=== PATIENT | female | born 1945 | race Caucasian/White ===

== ENCOUNTER 2017-10-25 17:38 | Inpatient (IN) | payer MEDICARE, OTHER ==
[~2017-10-25] VITALS: Ht 167.6 cm; Wt 79.6 kg
[~2017-10-25 17:38] MED LIST: ANAS1TAB10 PO; CYCL-394 PO; EPIN0.3A3 IM; LEVO112T39 PO; LISI-222 PO; PRAM0.253 PO; VERA240T PO; albuterol inhaler
[2017-10-25 18:15] LABS: BASOPHILS % (AUTO) 0.2 % (0-1); EOSINOPHILS # (AUTO) 0.1 X10'3 (0-0.9); EOSINOPHILS % (AUTO) 1.2 % (0-6); HEMATOCRIT 34.9 % (35.0-45.0); HEMOGLOBIN 12.3 g/dl (12.0-16.0); LYMPHOCYTES # (AUTO) 1.2 X10'3 (1.1-4.8); LYMPHOCYTES % (AUTO) 16.3 % (21-51); MEAN CORPUSCULAR HEMOGLOBIN 30.9 PG (27.0-31.0); MEAN CORPUSCULAR HGB CONC 35.4 % (33.0-36.5); MEAN CORPUSCULAR VOLUME 87.2 FL (78-98); MEAN PLATELET VOLUME 8.5 FL (7.4-10.4); MONOCYTES # (AUTO) 0.5 X10'3 (0-0.9); MONOCYTES % (AUTO) 6.3 % (2-12); NEUTROPHILS # (AUTO) 5.6 X10'3 (1.8-7.7); WHITE BLOOD COUNT 7.4 X10'3 (4.5-11.0)
[2017-10-25 18:25] LABS: INR 1.2 INR; PARTIAL THROMBOPLASTIN TIME 30 SECONDS (22-32)
[2017-10-25 18:27] LABS: PLATELET COUNT 97 X10'3 (140-440)
[2017-10-25 18:30] LABS: ALANINE AMINOTRANSFERASE 23 U/L (12-78); ALBUMIN 3.5 G/DL (3.4-5.0); ALBUMIN/GLOBULIN RATIO 0.8 (1.1-1.5); ALKALINE PHOSPHATASE 47 IU/L (46-116); ANION GAP 11 (8-16); ASPARTATE AMINO TRANSFERASE 22 U/L (10-37); BLOOD UREA NITROGEN 13 MG/DL (7-18); BUN/CREATININE RATIO 14.4 (6.6-38.0); CALCIUM 8.7 MG/DL (8.5-10.1); CHLORIDE 103 MMOL/L (99-107); GLUCOSE 138 MG/DL (70-104); POTASSIUM 3.8 MMOL/L (3.5-5.1); SODIUM 137 MMOL/L (135-145); TOTAL CARBON DIOXIDE 23.3 MMOL/L (24-32); TOTAL PROTEIN 7.9 G/DL (6.4-8.2); eGFR 62 ML/MIN
[2017-10-25] MEDS ORDERED: aspirin 325mg tablet PO ONE (20:00)
[2017-10-25 20:04] LABS: CLARITY,URINE Clear (Clear); COLOR,URINE Dark Yellow (Yellow); GLUCOSE, URINE Negative (Neg); KETONES,URINE Trace mg/dl (Neg); LEUKOCYTE ESTERASE ,URINE Trace (Neg); NITRITES, URINE Negative (Neg); OCCULT BLOOD,URINE Trace-Intact (Neg); PH,URINE 6.5 (4.8-8.0); PROTEIN,URINE Negative (Neg)
[2017-10-25 20:06] LABS: UA COLLECTION TYPE STRAIGHT CATH
[2017-10-25 20:15] LABS: BACTERIA,URINE FEW /HPF (Neg); RBC,URINE 0-2 /HPF (0-2); SQUAMOUS EPITHELIAL CELL,UR NONE SEEN /LPF (FEW); URINE AMPHETAMINE SCREEN NEGATIVE (Neg); URINE BARBITUATE SCREEN NEGATIVE (Neg); URINE BENZODIAZEPINES SCREEN NEGATIVE (Neg); URINE CANNABINOID SCREEN POSITIVE (Neg); URINE COCAINE SCREEN NEGATIVE (Neg); URINE METHADONE SCREEN NEGATIVE (Neg); URINE OPIATE SCREEN NEGATIVE (Neg); URINE PHENCYCLIDINE SCREEN NEGATIVE (Neg); WBC,URINE 0-4 /HPF (0-4); YEAST FEW /HPF (NEGATIVE)
[2017-10-25] MEDS ORDERED: temazepam 15mg capsule PO PRN (21:00)
[2017-10-25] MEDS ORDERED: lactulose 20gm/30ml cup PO ONE (21:30)
[2017-10-25] MEDS ORDERED: normal saline 1000ml 1,000 ML IV SCH (22:55)
[2017-10-25] MEDS ORDERED: magnesium Cl slow-release 64mg tablet PO PRN (22:55)
[2017-10-25] MEDS ORDERED: potassium Cl 40MEQ/NS 500ml 500 ML IV PRN ×2 (22:55)
[2017-10-25] MEDS ORDERED: HYDROcodone/acetaminophen 5mg/325mg tablet PO PRN (22:55)
[2017-10-25] MEDS ORDERED: potassium Cl 20 mEq SR tablet PO PRN ×2 (22:55)
[2017-10-25] MEDS ORDERED: magnesium 4gm in 100ml NS 100 ML IV PRN (22:55)
[2017-10-25] MEDS ORDERED: HYDROcodone/acetaminophen 10/325mg tab PO PRN (22:55)
[2017-10-25] MEDS ORDERED: mag hydrox/Alum hydrox/simeth 30ml oral suspension PO PRN (22:55)
[2017-10-25] MEDS ORDERED: magnesium 2GM in 50ml NS 50 ML IV PRN (22:55)
[2017-10-25] MEDS ORDERED: ondansetron/PF 4mg/2ml inj IV PRN (22:55)
[2017-10-25] MEDS ORDERED: magnesium hydroxide 30ml (MOM) UD suspension PO PRN (22:55)
[2017-10-25 23:24] LABS: CHOL/HDL RATIO 2.4 (0.00-4.99); CHOLESTEROL 158 MG/DL (0-200); HDL CHOLESTEROL 67 MG/DL (35-60); LDL CHOLESTEROL 84 MG/DL (50-100); TRIGLYCERIDES 66 MG/DL (20-135)
[2017-10-25 23:28] LABS: HEMOGLOBIN A1C 6.7 % (4.5-6.2)
[2017-10-26] MEDS ORDERED: METF500T PO (01:05)
[2017-10-26 01:45] VITALS: BP 121/57
[2017-10-26 05:00] VITALS: BP 138/75
[2017-10-26 05:48] LABS: BASOPHILS % (AUTO) 0.3 % (0-1); EOSINOPHILS # (AUTO) 0.1 X10'3 (0-0.9); HEMOGLOBIN 11.7 g/dl (12.0-16.0); LYMPHOCYTES % (AUTO) 18.7 % (21-51); MEAN CORPUSCULAR HEMOGLOBIN 30.9 PG (27.0-31.0); MEAN CORPUSCULAR HGB CONC 35.4 % (33.0-36.5); MEAN CORPUSCULAR VOLUME 87.2 FL (78-98); MEAN PLATELET VOLUME 8.6 FL (7.4-10.4); MONOCYTES # (AUTO) 0.4 X10'3 (0-0.9); MONOCYTES % (AUTO) 8.2 % (2-12); NEUTROPHILS # (AUTO) 3.8 X10'3 (1.8-7.7); NEUTROPHILS % (AUTO) 71.8 % (42-75); PLATELET COUNT 76 X10'3 (140-440); RED BLOOD COUNT 3.78 X10'6 (4.20-5.60); RED CELL DISTRIBUTION WIDTH 14.3 % (11.5-14.5); WHITE BLOOD COUNT 5.3 X10'3 (4.5-11.0)
[2017-10-26] MEDS ORDERED: OXYB5TAB11 (06:40)
[2017-10-26 07:28] LABS: ALANINE AMINOTRANSFERASE 23 U/L (12-78); ALBUMIN 3.2 G/DL (3.4-5.0); ALBUMIN/GLOBULIN RATIO 0.7 (1.1-1.5); ALKALINE PHOSPHATASE 38 IU/L (46-116); ANION GAP 12 (8-16); ASPARTATE AMINO TRANSFERASE 20 U/L (10-37); BILIRUBIN,TOTAL 1.3 MG/DL (0.1-1.0); BLOOD UREA NITROGEN 12 MG/DL (7-18); CALCIUM 8.2 MG/DL (8.5-10.1); CHLORIDE 104 MMOL/L (99-107); GLUCOSE 152 MG/DL (70-104); MAGNESIUM 1.5 MG/DL (1.5-2.4); POTASSIUM 3.6 MMOL/L (3.5-5.1); SODIUM 137 MMOL/L (135-145); TOTAL CARBON DIOXIDE 21.1 MMOL/L (24-32); TOTAL PROTEIN 7.5 G/DL (6.4-8.2); eGFR 71 ML/MIN
[2017-10-26] MEDS ORDERED: lisinopril 5mg tablet PO SCH (08:00)
[2017-10-26] MEDS: K and/or MAG REPLACEMENT MC SCH (08:00)
[2017-10-26] MEDS ORDERED: oseltamivir phos 75mg capsule PO SCH (08:00)
[2017-10-26] MEDS: levoTHYROXINE 112mcg tablet PO SCH (08:29)
[2017-10-26] MEDS: metFORMIN 500mg tablet PO SCH ×2 (08:29→17:52)
[2017-10-26] MEDS: oxybutynin 5mg tablet PO SCH ×2 (08:31→20:20)
[2017-10-26] MEDS: lactulose 20gm/30ml cup PO SCH ×3 (08:31→20:20)
[2017-10-26] MEDS: verapamil SR 120mg (sust. release) tab PO SCH (09:50)
[2017-10-26 10:00] VITALS: BP 135/75
[2017-10-26] MEDS: aspirin 81mg tablet.DR PO SCH (10:55)
[2017-10-26] MEDS: CefTRIAXone 2gm/NS 100ml IVPB 50 ML IV SCH (13:27)
[2017-10-26 14:00] VITALS: BP 147/69
[2017-10-26] MEDS ORDERED: acyclovir 1 GM inj IV SCH (16:00)
[2017-10-26] MEDS ORDERED: LIDOcaine 1% 30ml vial SQ STA (17:14)
[2017-10-26] MEDS: ACYCLOVIR IV SCH (17:51)
[2017-10-26] MEDS: NORMAL SALINE IV SCH (17:51)
[2017-10-26] MEDS: acetaminophen 325mg tablet PO PRN (17:52)
[2017-10-26 18:00] VITALS: BP 142/70
[2017-10-26 19:25] LABS: GLUCOSE,CSF 86 MG/DL (40-75); TOTAL PROTEIN,CSF 39 MG/DL (30-60)
[2017-10-26 19:28] LABS: APPEARANCE,CSF CLEAR; CSF SUPERNATANT COLOR COLORLESS; CSF VOLUME 15 ML
[2017-10-26 19:29] LABS: CSF RBC 0 /CU MM (0); CSF WBC CT 0 /CU MM (0-5); TUBE# COUNTED 4
[2017-10-26] MEDS: cyclobenzaprine 10mg tablet PO SCH (20:20)
[2017-10-26] MEDS: pramipexole 0.25mg tablet PO SCH (20:20)
[2017-10-26] MEDS: anastrozole 1 MG tablet PO SCH (20:21)
[2017-10-26 22:00] VITALS: BP 132/64
[2017-10-27] MEDS: ACYCLOVIR IV SCH ×2 (00:03→08:48)
[2017-10-27] MEDS: NORMAL SALINE IV SCH ×2 (00:03→08:48)
[2017-10-27] MEDS: vancomycin/NS 1 GM ADD-VANTAGE 250 ML IV SCH ×2 (01:25→12:51)
[2017-10-27 02:00] VITALS: BP 131/64
[2017-10-27 05:00] VITALS: BP 132/62
[2017-10-27 06:33] LABS: BASOPHILS % (AUTO) 0.3 % (0-1); EOSINOPHILS % (AUTO) 0.4 % (0-6); HEMATOCRIT 30.1 % (35.0-45.0); HEMOGLOBIN 10.6 g/dl (12.0-16.0); LYMPHOCYTES # (AUTO) 0.7 X10'3 (1.1-4.8); LYMPHOCYTES % (AUTO) 20.2 % (21-51); MEAN CORPUSCULAR HEMOGLOBIN 30.7 PG (27.0-31.0); MEAN CORPUSCULAR HGB CONC 35.1 % (33.0-36.5); MEAN CORPUSCULAR VOLUME 87.5 FL (78-98); MEAN PLATELET VOLUME 8.7 FL (7.4-10.4); MONOCYTES # (AUTO) 0.5 X10'3 (0-0.9); NEUTROPHILS # (AUTO) 2.1 X10'3 (1.8-7.7); NEUTROPHILS % (AUTO) 65.1 % (42-75); PLATELET COUNT 69 X10'3 (140-440); RED BLOOD COUNT 3.44 X10'6 (4.20-5.60); RED CELL DISTRIBUTION WIDTH 14.1 % (11.5-14.5); WHITE BLOOD COUNT 3.3 X10'3 (4.5-11.0)
[2017-10-27 06:51] LABS: PLATELET ESTIMATE DECREASED; POLYCHROMASIA FEW
[2017-10-27 06:52] LABS: ELLIPTOCYTES 1+
[2017-10-27 07:12] LABS: ALANINE AMINOTRANSFERASE 35 U/L (12-78); ALBUMIN 2.9 G/DL (3.4-5.0); ALBUMIN/GLOBULIN RATIO 0.7 (1.1-1.5); ALKALINE PHOSPHATASE 31 IU/L (46-116); ANION GAP 11 (8-16); ASPARTATE AMINO TRANSFERASE 33 U/L (10-37); BLOOD UREA NITROGEN 10 MG/DL (7-18); BUN/CREATININE RATIO 12.5 (6.6-38.0); CALCIUM 7.8 MG/DL (8.5-10.1); CHLORIDE 104 MMOL/L (99-107); GLUCOSE 124 MG/DL (70-104); MAGNESIUM 1.6 MG/DL (1.5-2.4); POTASSIUM 3.5 MMOL/L (3.5-5.1); SODIUM 136 MMOL/L (135-145); TOTAL CARBON DIOXIDE 21.3 MMOL/L (24-32); TOTAL PROTEIN 6.9 G/DL (6.4-8.2); eGFR 71 ML/MIN
[2017-10-27] MEDS: metFORMIN 500mg tablet PO SCH ×2 (07:32→17:11)
[2017-10-27] MEDS: lactulose 20gm/30ml cup PO SCH ×3 (07:32→20:37)
[2017-10-27] MEDS: verapamil SR 120mg (sust. release) tab PO SCH (07:32)
[2017-10-27] MEDS: levoTHYROXINE 112mcg tablet PO SCH (07:32)
[2017-10-27] MEDS: oxybutynin 5mg tablet PO SCH ×2 (07:33→20:37)
[2017-10-27] MEDS: aspirin 81mg tablet.DR PO SCH (07:33)
[2017-10-27] MEDS: CefTRIAXone 2gm/NS 100ml IVPB 50 ML IV SCH (07:35)
[2017-10-27] MEDS: K and/or MAG REPLACEMENT MC SCH (08:00)
[2017-10-27 10:00] VITALS: BP 114/58
[2017-10-27] MEDS: lactobacillus rhamnosus 10,000 MMU CELLS/CAPSULE PO SCH (17:11)
[2017-10-27 18:00] VITALS: BP 108/57
[2017-10-27] MEDS: pramipexole 0.25mg tablet PO SCH (20:37)
[2017-10-27] MEDS: cyclobenzaprine 10mg tablet PO SCH (20:37)
[2017-10-27] MEDS: anastrozole 1 MG tablet PO SCH (20:38)
[2017-10-27 22:00] VITALS: BP 117/62
[2017-10-28] MEDS: vancomycin/NS 1 GM ADD-VANTAGE 250 ML IV SCH (01:12)
[2017-10-28 06:00] VITALS: BP 127/65
[2017-10-28 06:21] LABS: HEMATOCRIT 30.2 % (35.0-45.0); HEMOGLOBIN 10.8 g/dl (12.0-16.0); MEAN CORPUSCULAR HEMOGLOBIN 30.6 PG (27.0-31.0); MEAN CORPUSCULAR HGB CONC 35.6 % (33.0-36.5); MEAN CORPUSCULAR VOLUME 85.9 FL (78-98); MEAN PLATELET VOLUME 9.3 FL (7.4-10.4); PLATELET COUNT 73 X10'3 (140-440); RED BLOOD COUNT 3.51 X10'6 (4.20-5.60); WHITE BLOOD COUNT 2.8 X10'3 (4.5-11.0)
[2017-10-28 07:05] LABS: ALANINE AMINOTRANSFERASE 35 U/L (12-78); ALBUMIN 2.7 G/DL (3.4-5.0); ALBUMIN/GLOBULIN RATIO 0.6 (1.1-1.5); ALKALINE PHOSPHATASE 31 IU/L (46-116); ANION GAP 12 (8-16); ASPARTATE AMINO TRANSFERASE 38 U/L (10-37); BILIRUBIN,TOTAL 0.8 MG/DL (0.1-1.0); BLOOD UREA NITROGEN 11 MG/DL (7-18); BUN/CREATININE RATIO 13.8 (6.6-38.0); CALCIUM 7.6 MG/DL (8.5-10.1); CHLORIDE 103 MMOL/L (99-107); GLUCOSE 95 MG/DL (70-104); MAGNESIUM 1.7 MG/DL (1.5-2.4); POTASSIUM 3.5 MMOL/L (3.5-5.1); SODIUM 135 MMOL/L (135-145); TOTAL CARBON DIOXIDE 20.2 MMOL/L (24-32); TOTAL PROTEIN 6.9 G/DL (6.4-8.2); eGFR 71 ML/MIN
[2017-10-28 07:40] LABS: PLATELET ESTIMATE DECREASED; TOTAL CELLS COUNTED 100
[2017-10-28 07:41] LABS: POLYCHROMASIA FEW
[2017-10-28] MEDS: K and/or MAG REPLACEMENT MC SCH (08:00)
[2017-10-28] MEDS: lactobacillus rhamnosus 10,000 MMU CELLS/CAPSULE PO SCH ×2 (09:19→17:47)
[2017-10-28] MEDS: CefTRIAXone 2gm/NS 100ml IVPB 50 ML IV SCH (09:19)
[2017-10-28] MEDS: levoTHYROXINE 112mcg tablet PO SCH (09:19)
[2017-10-28] MEDS: verapamil SR 120mg (sust. release) tab PO SCH (09:19)
[2017-10-28] MEDS: metFORMIN 500mg tablet PO SCH ×2 (09:19→17:47)
[2017-10-28] MEDS: lactulose 20gm/30ml cup PO SCH ×3 (09:19→21:00)
[2017-10-28] MEDS: oxybutynin 5mg tablet PO SCH ×2 (09:19→20:21)
[2017-10-28] MEDS: aspirin 81mg tablet.DR PO SCH (09:19)
[2017-10-28 10:30] VITALS: BP 131/66
[2017-10-28] MEDS ORDERED: VANCOMYCIN LEVEL IV NR (12:30)
[2017-10-28] MEDS: vancomycin inj 1,250 MG in normal saline 250ml IV soln 250 ML IV SCH (13:54)
[2017-10-28 14:00] VITALS: BP 105/52
[2017-10-28 17:00] VITALS: BP 115/58
[2017-10-28] MEDS: acetaminophen 325mg tablet PO PRN (17:53)
[2017-10-28] MEDS: pramipexole 0.25mg tablet PO SCH (20:21)
[2017-10-28] MEDS: anastrozole 1 MG tablet PO SCH (20:21)
[2017-10-28] MEDS: cyclobenzaprine 10mg tablet PO SCH (20:21)
[2017-10-28 22:00] VITALS: BP 131/65
[2017-10-29 02:00] VITALS: BP 114/62
[2017-10-29] MEDS: vancomycin inj 1,250 MG in normal saline 250ml IV soln 250 ML IV SCH (02:03)
[2017-10-29 06:00] VITALS: BP 143/62
[2017-10-29] MEDS: metFORMIN 500mg tablet PO SCH ×2 (07:46→17:49)
[2017-10-29] MEDS: levoTHYROXINE 112mcg tablet PO SCH (07:46)
[2017-10-29] MEDS: lactobacillus rhamnosus 10,000 MMU CELLS/CAPSULE PO SCH ×2 (07:47→17:49)
[2017-10-29] MEDS: CefTRIAXone 2gm/NS 100ml IVPB 50 ML IV SCH (07:48)
[2017-10-29] MEDS: aspirin 81mg tablet.DR PO SCH (07:49)
[2017-10-29] MEDS: verapamil SR 120mg (sust. release) tab PO SCH (07:49)
[2017-10-29] MEDS: oxybutynin 5mg tablet PO SCH (07:49)
[2017-10-29] MEDS: lactulose 20gm/30ml cup PO SCH ×3 (07:49→21:10)
[2017-10-29 09:15] LABS: HEMATOCRIT 33.4 % (35.0-45.0); HEMOGLOBIN 11.9 g/dl (12.0-16.0); MEAN CORPUSCULAR HEMOGLOBIN 30.7 PG (27.0-31.0); MEAN CORPUSCULAR HGB CONC 35.5 % (33.0-36.5); MEAN CORPUSCULAR VOLUME 86.5 FL (78-98); MEAN PLATELET VOLUME 9.2 FL (7.4-10.4); PLATELET COUNT 91 X10'3 (140-440); RED BLOOD COUNT 3.85 X10'6 (4.20-5.60); RED CELL DISTRIBUTION WIDTH 13.9 % (11.5-14.5); WHITE BLOOD COUNT 2.7 X10'3 (4.5-11.0)
[2017-10-29 09:25] LABS: ALANINE AMINOTRANSFERASE 40 U/L (12-78); ALBUMIN 2.9 G/DL (3.4-5.0); ALBUMIN/GLOBULIN RATIO 0.6 (1.1-1.5); ALKALINE PHOSPHATASE 34 IU/L (46-116); ANION GAP 10 (8-16); ASPARTATE AMINO TRANSFERASE 52 U/L (10-37); BILIRUBIN,TOTAL 0.7 MG/DL (0.1-1.0); BLOOD UREA NITROGEN 10 MG/DL (7-18); BUN/CREATININE RATIO 14.3 (6.6-38.0); CALCIUM 8.6 MG/DL (8.5-10.1); CHLORIDE 104 MMOL/L (99-107); GLUCOSE 116 MG/DL (70-104); MAGNESIUM 2.1 MG/DL (1.5-2.4); POTASSIUM 3.5 MMOL/L (3.5-5.1); SODIUM 138 MMOL/L (135-145); TOTAL CARBON DIOXIDE 23.7 MMOL/L (24-32); TOTAL PROTEIN 7.5 G/DL (6.4-8.2); eGFR 83 ML/MIN
[2017-10-29] MEDS: K and/or MAG REPLACEMENT MC SCH (09:36)
[2017-10-29 10:00] VITALS: BP 105/59
[2017-10-29 10:40] LABS: BANDS% (MANUAL) 4 % (0-10); BASOPHILS % (MANUAL) 1 % (0-1); EOSINOPHILS % (MANUAL) 0 % (0-6); LYMPHOCYTES % (MANUAL) 40 % (21-51); MONOCYTES % (MANUAL) 8 % (2-12); NEUTROPHILS % (MANUAL) 47 % (42-75); PLATELET ESTIMATE DECREASED; TOTAL CELLS COUNTED 100
[2017-10-29 10:42] LABS: ELLIPTOCYTES 1+
[2017-10-29 10:43] LABS: POIKILOCYTOSIS 1+
[2017-10-29 12:34] LABS: LIPASE 123 U/L (73-393)
[2017-10-29 12:40] LABS: HIV ANTIBODY 1&2 RAPID NON-REACTIVE (Neg)
[2017-10-29 14:00] VITALS: BP 94/44
[2017-10-29 17:00] VITALS: BP 123/70
[2017-10-29] MEDS: cyclobenzaprine 10mg tablet PO SCH (21:10)
[2017-10-29] MEDS: pramipexole 0.25mg tablet PO SCH (21:10)
[2017-10-29] MEDS: metroNIDAZOLE 500mg tablet PO SCH (21:10)
[2017-10-29] MEDS: anastrozole 1 MG tablet PO SCH (21:11)
[2017-10-29 22:00] VITALS: BP 122/65
[2017-10-30] MEDS ORDERED: VANCOMYCIN LEVEL IV ONE (01:30)
[2017-10-30 02:00] VITALS: BP 116/63
[2017-10-30 06:00] VITALS: BP 117/68
[2017-10-30 06:24] LABS: ALANINE AMINOTRANSFERASE 57 U/L (12-78); ALBUMIN 2.8 G/DL (3.4-5.0); ALBUMIN/GLOBULIN RATIO 0.7 (1.1-1.5); ALKALINE PHOSPHATASE 34 IU/L (46-116); ANION GAP 11 (8-16); ASPARTATE AMINO TRANSFERASE 60 U/L (10-37); BILIRUBIN,TOTAL 0.6 MG/DL (0.1-1.0); BLOOD UREA NITROGEN 10 MG/DL (7-18); BUN/CREATININE RATIO 14.3 (6.6-38.0); CALCIUM 8.3 MG/DL (8.5-10.1); CHLORIDE 105 MMOL/L (99-107); GLUCOSE 103 MG/DL (70-104); MAGNESIUM 1.8 MG/DL (1.5-2.4); POTASSIUM 3.4 MMOL/L (3.5-5.1); SODIUM 139 MMOL/L (135-145); TOTAL CARBON DIOXIDE 23.4 MMOL/L (24-32); TOTAL PROTEIN 7.1 G/DL (6.4-8.2); eGFR 83 ML/MIN
[2017-10-30 06:36] LABS: BASOPHILS % (AUTO) 0.6 % (0-1); EOSINOPHILS # (AUTO) 0.1 X10'3 (0-0.9); EOSINOPHILS % (AUTO) 2.4 % (0-6); HEMATOCRIT 30.9 % (35.0-45.0); HEMOGLOBIN 10.8 g/dl (12.0-16.0); LYMPHOCYTES # (AUTO) 1.1 X10'3 (1.1-4.8); LYMPHOCYTES % (AUTO) 40.8 % (21-51); MEAN CORPUSCULAR HEMOGLOBIN 30.3 PG (27.0-31.0); MEAN CORPUSCULAR VOLUME 86.5 FL (78-98); MONOCYTES # (AUTO) 0.2 X10'3 (0-0.9); MONOCYTES % (AUTO) 8.5 % (2-12); NEUTROPHILS # (AUTO) 1.3 X10'3 (1.8-7.7); NEUTROPHILS % (AUTO) 47.7 % (42-75); PLATELET COUNT 94 X10'3 (140-440); RED BLOOD COUNT 3.57 X10'6 (4.20-5.60); RED CELL DISTRIBUTION WIDTH 13.8 % (11.5-14.5); WHITE BLOOD COUNT 2.8 X10'3 (4.5-11.0)
[2017-10-30 06:38] LABS: TOTAL CELLS COUNTED 100
[2017-10-30 06:41] LABS: NEUTROPHILS % (MANUAL) 50 % (42-75)
[2017-10-30 06:42] LABS: BANDS% (MANUAL) 4 % (0-10); BURR CELLS 1+; ELLIPTOCYTES 1+; LYMPHOCYTES % (MANUAL) 37 % (21-51); MONOCYTES % (MANUAL) 9 % (2-12); PLATELET ESTIMATE DECREASED
[2017-10-30] MEDS: K and/or MAG REPLACEMENT MC SCH (07:52)
[2017-10-30] MEDS: lactobacillus rhamnosus 10,000 MMU CELLS/CAPSULE PO SCH ×2 (07:58→17:52)
[2017-10-30] MEDS: aspirin 81mg tablet.DR PO SCH (07:58)
[2017-10-30] MEDS: metroNIDAZOLE 500mg tablet PO SCH ×2 (07:58→20:44)
[2017-10-30] MEDS: verapamil SR 120mg (sust. release) tab PO SCH (07:58)
[2017-10-30] MEDS: levoTHYROXINE 112mcg tablet PO SCH (07:58)
[2017-10-30] MEDS: metFORMIN 500mg tablet PO SCH ×2 (07:58→17:52)
[2017-10-30] MEDS: lactulose 20gm/30ml cup PO SCH ×3 (07:58→20:45)
[2017-10-30] MEDS: CefTRIAXone 2gm/NS 100ml IVPB 50 ML IV SCH (07:59)
[2017-10-30 08:00] VITALS: BP 121/74
[2017-10-30] MEDS ORDERED: magnesium Cl slow-release 64mg tablet PO PRN (08:35)
[2017-10-30] MEDS ORDERED: magnesium 2GM in 50ml NS 50 ML IV PRN (08:35)
[2017-10-30] MEDS ORDERED: potassium Cl 20 mEq SR tablet PO PRN (08:35)
[2017-10-30] MEDS ORDERED: potassium Cl 40MEQ/NS 500ml 500 ML IV PRN ×2 (08:35)
[2017-10-30 10:00] VITALS: BP 119/75
[2017-10-30] MEDS: potassium Cl 20 mEq SR tablet PO PRN ×2 (13:54→17:53)
[2017-10-30 18:30] VITALS: BP 123/90
[2017-10-30] MEDS: pramipexole 0.25mg tablet PO SCH (20:44)
[2017-10-30] MEDS: cyclobenzaprine 10mg tablet PO SCH (20:45)
[2017-10-30] MEDS: anastrozole 1 MG tablet PO SCH (20:45)
[2017-10-30 22:00] VITALS: BP 125/69
[2017-10-31 06:00] VITALS: BP 111/66
[2017-10-31] MEDS: K and/or MAG REPLACEMENT MC SCH (07:03)
[2017-10-31] MEDS: metFORMIN 500mg tablet PO SCH (07:08)
[2017-10-31] MEDS: metroNIDAZOLE 500mg tablet PO SCH (07:09)
[2017-10-31] MEDS: aspirin 81mg tablet.DR PO SCH (07:09)
[2017-10-31] MEDS: levoTHYROXINE 112mcg tablet PO SCH (07:09)
[2017-10-31] MEDS: verapamil SR 120mg (sust. release) tab PO SCH (07:09)
[2017-10-31] MEDS: lactobacillus rhamnosus 10,000 MMU CELLS/CAPSULE PO SCH (07:09)
[2017-10-31] MEDS: lactulose 20gm/30ml cup PO SCH (07:11)
[2017-10-31] MEDS ORDERED: amox tr/potassium clavulanate 875/125mg TAB PO SCH (08:30)
[2017-10-31 10:00] VITALS: BP 120/57
[2017-10-31] MEDS ORDERED: LACT10SO32 PO (10:15)
[2017-10-31] MEDS ORDERED: LACT1CAP26 PO (10:15)
[2017-10-31] MEDS ORDERED: ASPI-1071 PO (10:15)
[2017-10-31] MEDS ORDERED: AMOX-580 PO (10:15)
[2017-10-31] MEDS ORDERED: LOVA20TA2 PO (10:29)
[2017-10-31 11:15] LABS: VDRL, CSF Non Reactive (Non Rea:<1:1)
[2017-11-01 19:09] LABS: HSV 1 PCR Negative (Negative); HSV 2 PCR Negative (Negative)
== END 2017-10-31 12:40 | disposition home health service (06) | DRG 871 ==
LOC: ER 17:38 → ED HOLD 22:55 → ORTHO 4S 10-26 01:10
PROVIDERS: ADMIT Internal Medicine; ATTEND Family Medicine
PROC: 009U3ZX Drainage of Spinal Canal, Percutaneous Approach, Diagnostic (ICD-10-PCS; principal; 2017-10-25)
DX: A41.9 Sepsis, unspecified organism (principal); J69.0 Pneumonitis due to inhalation of food and vomit; G93.41 Metabolic encephalopathy; D69.59 Other secondary thrombocytopenia; C50.919 Malignant neoplasm of unspecified site of unspecified female breast; E11.9 Type 2 diabetes mellitus without complications; K72.90 Hepatic failure, unspecified without coma; D72.819 Decreased white blood cell count, unspecified; G45.9 Transient cerebral ischemic attack, unspecified; R47.01 Aphasia; B34.9 Viral infection, unspecified; E03.9 Hypothyroidism, unspecified; I10 Essential (primary) hypertension; F31.9 Bipolar disorder, unspecified; W06.XXXA Fall from bed, initial encounter; S02.5XXA Fracture of tooth (traumatic), initial encounter for closed fracture; H92.01 Otalgia, right ear; R59.0 Localized enlarged lymph nodes; I34.0 Nonrheumatic mitral (valve) insufficiency; H66.90 Otitis media, unspecified, unspecified ear; J44.9 Chronic obstructive pulmonary disease, unspecified; K70.31 Alcoholic cirrhosis of liver with ascites; M79.7 Fibromyalgia; Z90.710 Acquired absence of both cervix and uterus; Z91.041 Radiographic dye allergy status; Z88.8 Allergy status to other drugs, medicaments and biological substances; Z92.3 Personal history of irradiation; Z87.891 Personal history of nicotine dependence; Z80.1 Family history of malignant neoplasm of trachea, bronchus and lung; Y93.89 Activity, other specified; Y92.89 Other specified places as the place of occurrence of the external cause; Y99.8 Other external cause status
CPT/HCPCS: 36415; 70450; 70490; 70544; 70551; 71045; 71046; 76700; 80053; 80061; 80202; 80305; 81001; 82103; 82140; 82945; 82948; 83036; 83605; 83690; 83735; 84145; 84157; 84443; 85025; 85610; 85651; 85730; 86592; 86703; 87015; 87040; 87070; 87088; 87529; 89051; 92507; 92616; 93306; 93880; 97116; 97162; 97530; 99285; A6212; J0133; J0696; J3370; J3490; J7030

== ENCOUNTER 2018-06-27 14:18 | Emergency (ER) | payer MEDICARE, OTHER ==
[~2018-06-27] VITALS: Ht 167.6 cm; Wt 84.0 kg
[~2018-06-27 14:18] MED LIST changes: +AMOX-580 PO; +ASPI-1071 PO; +LACT10SO32 PO; +LACT1CAP26 PO; -LISI-222 PO; +LOVA20TA2 PO; +METF500T PO
[2018-06-27 15:06] LABS: HEMATOCRIT 31.2 % (35.0-45.0); HEMOGLOBIN 10.8 g/dl (12.0-16.0); RED BLOOD COUNT 3.55 X10'6 (4.20-5.60); WHITE BLOOD COUNT 4.7 X10'3 (4.5-11.0)
[2018-06-27 15:07] LABS: BASOPHILS % (AUTO) 0.6 % (0-1); EOSINOPHILS # (AUTO) 0.1 X10'3 (0-0.9); EOSINOPHILS % (AUTO) 1.3 % (0-6); LYMPHOCYTES # (AUTO) 1.9 X10'3 (1.1-4.8); MEAN CORPUSCULAR HEMOGLOBIN 30.4 PG (27.0-31.0); MEAN CORPUSCULAR HGB CONC 34.5 % (33.0-36.5); MEAN PLATELET VOLUME 9.1 FL (7.4-10.4); MONOCYTES # (AUTO) 0.5 X10'3 (0-0.9); MONOCYTES % (AUTO) 9.6 % (2-12); NEUTROPHILS # (AUTO) 2.2 X10'3 (1.8-7.7); NEUTROPHILS % (AUTO) 47.5 % (42-75); PLATELET COUNT 160 X10'3 (140-440)
[2018-06-27 15:15] LABS: ALANINE AMINOTRANSFERASE 34 U/L (12-78); ALBUMIN 3.5 G/DL (3.4-5.0); ALBUMIN/GLOBULIN RATIO 0.8 (1.1-1.5); ALKALINE PHOSPHATASE 75 IU/L (46-116); ANION GAP 14 (8-16); ASPARTATE AMINO TRANSFERASE 32 U/L (10-37); BILIRUBIN,TOTAL 0.6 MG/DL (0.1-1.0); BLOOD UREA NITROGEN 14 MG/DL (7-18); BUN/CREATININE RATIO 15.7 (6.6-38.0); CALCIUM 9.1 MG/DL (8.5-10.1); CHLORIDE 102 MMOL/L (99-107); CREATININE 0.89 MG/DL (0.40-0.90); POTASSIUM 4.6 MMOL/L (3.5-5.1); SODIUM 138 MMOL/L (135-145); TOTAL CARBON DIOXIDE 22.2 MMOL/L (24-32); TOTAL PROTEIN 7.9 G/DL (6.4-8.2); eGFR 63 ML/MIN
[2018-06-27 15:16] LABS: GLUCOSE 351 MG/DL (70-104)
[2018-06-27] MEDS ORDERED: OXYC-150 PO (16:40)
[2018-06-27] MEDS ORDERED: PRED10TA PO (17:09)
[2018-06-27 17:54] VITALS: BP 127/85
== END 2018-06-27 18:18 | disposition home or self-care (01) ==
LOC: ER 14:19
DX: J44.9 Chronic obstructive pulmonary disease, unspecified (principal); E11.65 Type 2 diabetes mellitus with hyperglycemia; I10 Essential (primary) hypertension; I48.91 Unspecified atrial fibrillation; E03.9 Hypothyroidism, unspecified; Z90.710 Acquired absence of both cervix and uterus; Z88.8 Allergy status to other drugs, medicaments and biological substances; Z79.82 Long term (current) use of aspirin; Z79.84 Long term (current) use of oral hypoglycemic drugs; Z79.2 Long term (current) use of antibiotics; Z79.899 Other long term (current) drug therapy
CPT/HCPCS: 36415; 71046; 80053; 85025; 93005; 99285

== ENCOUNTER 2018-08-02 13:11 | Inpatient (IN) | payer MEDICARE, OTHER ==
[~2018-08-02] VITALS: Ht 167.6 cm; Wt 65.5 kg
[~2018-08-02 13:11] MED LIST changes: +OXYC-150 PO; +PRED10TA PO
[2018-08-02 13:47] LABS: BASOPHILS # (AUTO) 0.2 X10'3 (0-0.2); BASOPHILS % (AUTO) 1.3 % (0-1); EOSINOPHILS % (AUTO) 0.3 % (0-6); HEMATOCRIT 38.6 % (35.0-45.0); LYMPHOCYTES # (AUTO) 0.9 X10'3 (1.1-4.8); LYMPHOCYTES % (AUTO) 7.3 % (21-51); MEAN CORPUSCULAR HEMOGLOBIN 30.2 PG (27.0-31.0); MEAN CORPUSCULAR HGB CONC 33.8 % (33.0-36.5); MEAN CORPUSCULAR VOLUME 89.4 FL (78-98); MEAN PLATELET VOLUME 9.4 FL (7.4-10.4); MONOCYTES # (AUTO) 0.6 X10'3 (0-0.9); MONOCYTES % (AUTO) 4.9 % (2-12); NEUTROPHILS # (AUTO) 10.4 X10'3 (1.8-7.7); NEUTROPHILS % (AUTO) 86.2 % (42-75); PLATELET COUNT 147 X10'3 (140-440); RED BLOOD COUNT 4.32 X10'6 (4.20-5.60); RED CELL DISTRIBUTION WIDTH 17.4 % (11.5-14.5)
[2018-08-02 14:02] LABS: INR 1.1 INR; PARTIAL THROMBOPLASTIN TIME 24 SECONDS (22-32); PROTHROMBIN TIME 11.5 SECONDS (9.0-12.0)
[2018-08-02 14:03] LABS: ALANINE AMINOTRANSFERASE 41 U/L (12-78); ALBUMIN 3.3 G/DL (3.4-5.0); ALBUMIN/GLOBULIN RATIO 0.7 (1.1-1.5); ALKALINE PHOSPHATASE 66 IU/L (46-116); ANION GAP 15 (8-16); ASPARTATE AMINO TRANSFERASE 31 U/L (10-37); BILIRUBIN,TOTAL 1.1 MG/DL (0.1-1.0); BLOOD UREA NITROGEN 12 MG/DL (7-18); BUN/CREATININE RATIO 12.5 (6.6-38.0); CALCIUM 8.7 MG/DL (8.5-10.1); CHLORIDE 99 MMOL/L (99-107); CREATININE 0.96 MG/DL (0.40-0.90); GLUCOSE 290 MG/DL (70-104); SODIUM 135 MMOL/L (135-145); TOTAL CARBON DIOXIDE 20.6 MMOL/L (24-32); TOTAL PROTEIN 7.8 G/DL (6.4-8.2); eGFR 57 ML/MIN
[2018-08-02] MEDS ORDERED: normal saline 1000ml 1,000 ML IV ONE ×2 (14:05→14:15)
[2018-08-02 14:06] LABS: TROPONIN I < 0.04 NG/ML (0.0-0.05)
[2018-08-02] MEDS ORDERED: lactulose 20gm/30ml cup PO ONE (14:15)
[2018-08-02] MEDS: normal saline 1000ml 1,000 ML IV SCH (14:53)
[2018-08-02] MEDS ORDERED: traMADol 50MG tablet PO PRN (14:55)
[2018-08-02] MEDS ORDERED: magnesium Cl slow-release 64mg tablet PO PRN (14:55)
[2018-08-02] MEDS ORDERED: magnesium 1gm/100ml D5W IVPB 100 ML IV PRN (14:55)
[2018-08-02] MEDS ORDERED: potassium Cl 40MEQ/NS 500ml 500 ML IV PRN ×2 (14:55)
[2018-08-02] MEDS ORDERED: ondansetron/PF 4mg/2ml inj IV PRN (14:55)
[2018-08-02] MEDS ORDERED: acetaminophen 325mg tablet PO PRN (14:55)
[2018-08-02] MEDS ORDERED: magnesium 4gm in 100ml NS 100 ML IV PRN (14:55)
[2018-08-02] MEDS ORDERED: potassium Cl 20 mEq SR tablet PO PRN (14:55)
[2018-08-02] MEDS ORDERED: dextrose 50%-water 50ml dispensing syringe IV PRN ×2 (15:05)
[2018-08-02] MEDS ORDERED: glucagon, human recombinant 1mg kit SUBCUT PRN (15:05)
[2018-08-02] MEDS ORDERED: dextrose ORAL solution 15 GM/59 ML bottle PO PRN ×2 (15:05)
[2018-08-02] MEDS ORDERED: MESSAGE TO PHARMACY PO ONE (15:05)
[2018-08-02 15:35] LABS: HEMOGLOBIN A1C 9.2 % (4.5-6.2)
[2018-08-02 15:53] LABS: CLARITY,URINE CLEAR (Clear); COLOR,URINE YELLOW (Yellow); GLUCOSE, URINE 500 mg/dl (Neg); KETONES,URINE 15 mg/dl (Neg); LEUKOCYTE ESTERASE ,URINE NEGATIVE (Neg); NITRITES, URINE NEGATIVE (Neg); OCCULT BLOOD,URINE TRACE-INTACT (Neg); PH,URINE 5.5 (4.8-8.0); PROTEIN,URINE NEGATIVE (Neg); UROBILINOGEN,URINE 0.2 E.U/dL (0.2-1.0)
[2018-08-02 15:58] LABS: UA COLLECTION TYPE STRAIGHT CATH
[2018-08-02 16:02] LABS: BACTERIA,URINE FEW /HPF (Neg); HYALINE CASTS 0-3 /LPF (NEGATIVE); MUCUS STRANDS MODERATE /LPF (Neg); RBC,URINE 0-2 /HPF (0-2); RENAL CELLS, URINE FEW /HPF; SQUAMOUS EPITHELIAL CELL,UR FEW /LPF (FEW); WBC,URINE 0-4 /HPF (0-4)
[2018-08-02] MEDS ORDERED: piperacillin/tazo 4.5gm/100ml 100 ML IV SCH (16:50)
[2018-08-02 17:22] VITALS: BP 115/59
[2018-08-02] MEDS: lactulose 20gm/30ml cup PO SCH (17:44)
[2018-08-02 20:00] VITALS: BP 114/64
[2018-08-02] MEDS: heparin, porcine 5000 units/ml vial SQ SCH (20:43)
[2018-08-02] MEDS ORDERED: temazepam 15mg capsule PO PRN (21:00)
[2018-08-02] MEDS: insulin glargine (Lantus) pen - multi-dose SQ SCH (21:00)
[2018-08-03] MEDS ORDERED: metroNIDAZOLE-Flagyl 750mg/NS 150 ML IV SCH
[2018-08-03] MEDS: lactulose 20gm/30ml cup PO SCH ×3 (00:28→15:49)
[2018-08-03] MEDS: metroNIDAZOLE-Flagyl 500mg/NS 100ml IVPB IV SCH ×3 (00:28→15:50)
[2018-08-03 00:57] VITALS: BP 130/69
[2018-08-03] MEDS: CefTRIAXone 2gm/D5W 50ml 50 ML IV SCH (07:15)
[2018-08-03] MEDS: heparin, porcine 5000 units/ml vial SQ SCH (07:18)
[2018-08-03 08:00] VITALS: BP 139/69
[2018-08-03] MEDS: K and/or MAG REPLACEMENT MC SCH (08:00)
[2018-08-03 08:19] LABS: BASOPHILS % (AUTO) 0.3 % (0-1); EOSINOPHILS % (AUTO) 0 % (0-6); HEMATOCRIT 33.6 % (35.0-45.0); HEMOGLOBIN 11.4 g/dl (12.0-16.0); LYMPHOCYTES # (AUTO) 1.3 X10'3 (1.1-4.8); LYMPHOCYTES % (AUTO) 14.1 % (21-51); MEAN CORPUSCULAR HEMOGLOBIN 30.7 PG (27.0-31.0); MEAN CORPUSCULAR VOLUME 90.3 FL (78-98); MEAN PLATELET VOLUME 10.9 FL (7.4-10.4); MONOCYTES # (AUTO) 0.5 X10'3 (0-0.9); MONOCYTES % (AUTO) 5.7 % (2-12); NEUTROPHILS # (AUTO) 7.1 X10'3 (1.8-7.7); NEUTROPHILS % (AUTO) 79.9 % (42-75); PLATELET COUNT 87 X10'3 (140-440); RED BLOOD COUNT 3.71 X10'6 (4.20-5.60); RED CELL DISTRIBUTION WIDTH 17.7 % (11.5-14.5); WHITE BLOOD COUNT 8.9 X10'3 (4.5-11.0)
[2018-08-03 08:20] LABS: ALBUMIN 2.7 G/DL (3.4-5.0); ANION GAP 11 (8-16); BLOOD UREA NITROGEN 16 MG/DL (7-18); BUN/CREATININE RATIO 20.3 (6.6-38.0); CALCIUM 8.2 MG/DL (8.5-10.1); CHLORIDE 105 MMOL/L (99-107); CREATININE 0.79 MG/DL (0.40-0.90); GLUCOSE 256 MG/DL (70-104); POTASSIUM 3.2 MMOL/L (3.5-5.1); SODIUM 137 MMOL/L (135-145); TOTAL CARBON DIOXIDE 21.4 MMOL/L (24-32); eGFR 72 ML/MIN
[2018-08-03] MEDS: potassium Cl 20 mEq SR tablet PO PRN ×3 (09:07→17:40)
[2018-08-03] MEDS: insulin Lispro (HumaLOG) vial - multi-dose SQ SCH ×3 (09:17→19:08)
[2018-08-03 12:05] VITALS: BP 129/63
[2018-08-03] MEDS: normal saline 1000ml 1,000 ML IV SCH (15:54)
[2018-08-03 20:00] VITALS: BP 129/74
[2018-08-03] MEDS: insulin glargine (Lantus) pen - multi-dose SQ SCH (21:56)
[2018-08-04] MEDS: lactulose 20gm/30ml cup PO SCH ×4 (00:06→23:41)
[2018-08-04] MEDS: metroNIDAZOLE-Flagyl 500mg/NS 100ml IVPB IV SCH ×4 (00:06→23:40)
[2018-08-04 00:54] VITALS: BP 127/69
[2018-08-04 06:11] LABS: INR 1.7 INR; PROTHROMBIN TIME 16.9 SECONDS (9.0-12.0)
[2018-08-04 06:14] LABS: BASOPHILS % (AUTO) 0.3 % (0-1); EOSINOPHILS # (AUTO) 0.1 X10'3 (0-0.9); EOSINOPHILS % (AUTO) 1.2 % (0-6); HEMATOCRIT 31.9 % (35.0-45.0); HEMOGLOBIN 10.9 g/dl (12.0-16.0); LYMPHOCYTES # (AUTO) 1.5 X10'3 (1.1-4.8); LYMPHOCYTES % (AUTO) 21.5 % (21-51); MEAN CORPUSCULAR HEMOGLOBIN 30.8 PG (27.0-31.0); MEAN CORPUSCULAR HGB CONC 34.1 % (33.0-36.5); MEAN CORPUSCULAR VOLUME 90.3 FL (78-98); MEAN PLATELET VOLUME 9.9 FL (7.4-10.4); MONOCYTES # (AUTO) 0.5 X10'3 (0-0.9); MONOCYTES % (AUTO) 6.7 % (2-12); NEUTROPHILS % (AUTO) 70.3 % (42-75); PLATELET COUNT 78 X10'3 (140-440); RED BLOOD COUNT 3.54 X10'6 (4.20-5.60); RED CELL DISTRIBUTION WIDTH 17.5 % (11.5-14.5); WHITE BLOOD COUNT 7.1 X10'3 (4.5-11.0)
[2018-08-04 06:42] LABS: ALANINE AMINOTRANSFERASE 28 U/L (12-78); ALBUMIN 2.5 G/DL (3.4-5.0); ALBUMIN/GLOBULIN RATIO 0.7 (1.1-1.5); ALKALINE PHOSPHATASE 46 IU/L (46-116); ANION GAP 10 (8-16); ASPARTATE AMINO TRANSFERASE 20 U/L (10-37); BILIRUBIN,TOTAL 0.9 MG/DL (0.1-1.0); BLOOD UREA NITROGEN 14 MG/DL (7-18); BUN/CREATININE RATIO 17.1 (6.6-38.0); CHLORIDE 106 MMOL/L (99-107); CREATININE 0.82 MG/DL (0.40-0.90); GLUCOSE 185 MG/DL (70-104); MAGNESIUM 1.5 MG/DL (1.5-2.4); POTASSIUM 3.3 MMOL/L (3.5-5.1); SODIUM 138 MMOL/L (135-145); TOTAL CARBON DIOXIDE 22.2 MMOL/L (24-32); TOTAL PROTEIN 6.3 G/DL (6.4-8.2); eGFR 69 ML/MIN
[2018-08-04] MEDS: normal saline 1000ml 1,000 ML IV SCH ×2 (06:53→17:56)
[2018-08-04 07:00] VITALS: BP 131/63
[2018-08-04 07:10] LABS: OCCULT BLOOD STOOL POSITIVE (Neg)
[2018-08-04 07:18] LABS: ANISOCYTOSIS 1+; PLATELET ESTIMATE DECREASED
[2018-08-04] MEDS: K and/or MAG REPLACEMENT MC SCH (08:00)
[2018-08-04] MEDS: insulin Lispro (HumaLOG) vial - multi-dose SQ SCH ×3 (09:27→18:57)
[2018-08-04] MEDS: CefTRIAXone 2gm/D5W 50ml 50 ML IV SCH (09:55)
[2018-08-04 11:00] VITALS: BP 111/57
[2018-08-04] MEDS: potassium Cl 20 mEq SR tablet PO PRN ×2 (11:10→16:17)
[2018-08-04 14:04] LABS: C DIFF ANTIGEN NEGATIVE (NEGATIVE); C DIFF SPECIMEN=DIARRHEA? ACCEPTABLE; C DIFFICILE TOXINS A&B NEGATIVE (Neg)
[2018-08-04 18:45] VITALS: BP 125/71
[2018-08-04] MEDS: insulin glargine (Lantus) pen - multi-dose SQ SCH (21:28)
[2018-08-04] MEDS: diatr meglu/diatrizoate 30ml oral sol.-(3 dose) bottle PO SCH (21:35)
[2018-08-04 23:00] VITALS: BP 131/74
[2018-08-05] MEDS: diatr meglu/diatrizoate 30ml oral sol.-(3 dose) bottle PO SCH ×2 (07:01→09:27)
[2018-08-05] MEDS: metroNIDAZOLE-Flagyl 500mg/NS 100ml IVPB IV SCH ×2 (07:01→15:46)
[2018-08-05] MEDS: K and/or MAG REPLACEMENT MC SCH (07:05)
[2018-08-05] MEDS: lactulose 20gm/30ml cup PO SCH ×2 (07:05→15:46)
[2018-08-05 07:20] VITALS: BP 116/66
[2018-08-05] MEDS: CefTRIAXone 2gm/D5W 50ml 50 ML IV SCH (08:36)
[2018-08-05] MEDS ORDERED: iohexol 300mg/ml 100ml inj. ONE (09:40)
[2018-08-05 12:00] VITALS: BP 120/70
[2018-08-05 13:09] LABS: BASOPHILS % (AUTO) 0.1 % (0-1); EOSINOPHILS % (AUTO) 1.3 % (0-6); HEMATOCRIT 31.1 % (35.0-45.0); HEMOGLOBIN 10.5 g/dl (12.0-16.0); LYMPHOCYTES % (AUTO) 26.6 % (21-51); MEAN CORPUSCULAR HEMOGLOBIN 30.5 PG (27.0-31.0); MEAN CORPUSCULAR HGB CONC 33.7 % (33.0-36.5); MEAN CORPUSCULAR VOLUME 90.5 FL (78-98); MEAN PLATELET VOLUME 9.5 FL (7.4-10.4); MONOCYTES # (AUTO) 0.3 X10'3 (0-0.9); MONOCYTES % (AUTO) 9.1 % (2-12); NEUTROPHILS # (AUTO) 2.4 X10'3 (1.8-7.7); NEUTROPHILS % (AUTO) 62.9 % (42-75); PLATELET COUNT 75 X10'3 (140-440); RED BLOOD COUNT 3.43 X10'6 (4.20-5.60); RED CELL DISTRIBUTION WIDTH 16.9 % (11.5-14.5); WHITE BLOOD COUNT 3.8 X10'3 (4.5-11.0)
[2018-08-05] MEDS: insulin Lispro (HumaLOG) vial - multi-dose SQ SCH (13:16)
[2018-08-05 18:00] VITALS: BP 130/66
[2018-08-05] MEDS: normal saline 1000ml 1,000 ML IV SCH (20:08)
[2018-08-05] MEDS: insulin glargine (Lantus) pen - multi-dose SQ SCH (21:36)
[2018-08-06] VITALS: BP 140/75
[2018-08-06] MEDS: lactulose 20gm/30ml cup PO SCH ×4 (00:14→23:23)
[2018-08-06] MEDS: metroNIDAZOLE-Flagyl 500mg/NS 100ml IVPB IV SCH ×2 (00:14→10:07)
[2018-08-06 07:01] VITALS: BP 138/70
[2018-08-06] MEDS: K and/or MAG REPLACEMENT MC SCH (08:00)
[2018-08-06] MEDS: insulin Lispro (HumaLOG) vial - multi-dose SQ SCH ×2 (09:07→19:15)
[2018-08-06] MEDS: CefTRIAXone 2gm/D5W 50ml 50 ML IV SCH (09:10)
[2018-08-06] MEDS ORDERED: MESSAGE TO NURSING PO NR (10:00)
[2018-08-06] MEDS: metroNIDAZOLE 500mg tablet PO SCH ×2 (16:09→23:23)
[2018-08-06] MEDS: lactobacillus rhamnosus 10,000 MMU CELLS/CAPSULE PO SCH (19:15)
[2018-08-06 20:00] VITALS: BP 127/63
[2018-08-06] MEDS: insulin glargine (Lantus) pen - multi-dose SQ SCH (21:09)
[2018-08-07] VITALS: BP 136/66
[2018-08-07 07:00] VITALS: BP 115/63
[2018-08-07] MEDS: K and/or MAG REPLACEMENT MC SCH (08:00)
[2018-08-07] MEDS: metroNIDAZOLE 500mg tablet PO SCH (08:18)
[2018-08-07] MEDS: lactobacillus rhamnosus 10,000 MMU CELLS/CAPSULE PO SCH (08:19)
[2018-08-07] MEDS: lactulose 20gm/30ml cup PO SCH (08:19)
[2018-08-07] MEDS: CefTRIAXone 2gm/D5W 50ml 50 ML IV SCH (08:26)
[2018-08-07] MEDS: insulin Lispro (HumaLOG) vial - multi-dose SQ SCH (08:39)
[2018-08-07 09:01] VITALS: BP 115/63
[2018-08-07 11:00] VITALS: BP 143/85
[2018-08-07] MEDS ORDERED: levoFLOXACIN 500mg tablet PO SCH (11:00)
[2018-08-07 11:25] VITALS: BP 143/85
[2018-08-07] MEDS ORDERED: LEVO500T2 PO (11:34)
[2018-08-07] MEDS ORDERED: METR500T4 PO (11:34)
== END 2018-08-07 14:36 | disposition home or self-care (01) | DRG 391 ==
LOC: ER 13:11 → ED HOLD 14:53 → EDBEDREQTM 15:18 → SUR 3N 17:00 → UNDODISIN 17:19 → SUR 3N 08-04 23:59
PROVIDERS: ADMIT Internal Medicine; ATTEND Family Medicine
DX: K52.9 Noninfective gastroenteritis and colitis, unspecified (principal); K72.00 Acute and subacute hepatic failure without coma; E03.9 Hypothyroidism, unspecified; E11.9 Type 2 diabetes mellitus without complications; E86.0 Dehydration; I10 Essential (primary) hypertension; F31.9 Bipolar disorder, unspecified; I48.91 Unspecified atrial fibrillation; J44.9 Chronic obstructive pulmonary disease, unspecified; K74.60 Unspecified cirrhosis of liver; M79.7 Fibromyalgia; E87.6 Hypokalemia; Z23 Encounter for immunization; Z98.891 History of uterine scar from previous surgery; Z90.710 Acquired absence of both cervix and uterus; Z88.8 Allergy status to other drugs, medicaments and biological substances; Z79.890 Hormone replacement therapy; Z79.82 Long term (current) use of aspirin; Z85.3 Personal history of malignant neoplasm of breast
CPT/HCPCS: 36415; 70450; 71045; 74176; 74177; 80048; 80053; 81001; 82140; 82272; 82948; 83036; 83605; 83735; 84484; 85025; 85610; 85730; 87040; 87045; 87046; 87070; 87324; 87449; 89055; 92616; 93005; 99285; G0378; J0696; J1644; J1815; J2543; J3490; J7030; Q9963; Q9967

== ENCOUNTER 2018-09-23 14:12 | Day surgery (SDC) | payer MEDICARE, OTHER ==
[~2018-09-23] VITALS: Ht 160 cm; Wt 68.2 kg
[~2018-09-23 14:12] MED LIST changes: -AMOX-580 PO; -ASPI-1071 PO; -CYCL-394 PO; -PRED10TA PO
[2018-09-23] MEDS ORDERED: MIDAZolam 5mg/5ml vial ONE (14:50)
[2018-09-23] MEDS ORDERED: LIDOcaine Viscous 15ml cup ONE (14:50)
[2018-09-23] MEDS ORDERED: fentaNYL/PF 50MCG/1 ML 2ML syringe ONE (14:50)
[2018-09-23] MEDS ORDERED: METF-438 PO (14:53)
[2018-09-23] MEDS ORDERED: ADAL40PE SUBCUT (14:54)
[2018-09-23] MEDS ORDERED: PRAM0.5T3 PO (14:54)
[2018-09-23] MEDS ORDERED: IRON150C5 PO (14:55)
[2018-09-23] MEDS ORDERED: CHOL10002 PO (14:58)
[2018-09-23] MEDS ORDERED: BUDE10.2 INH (14:58)
[2018-09-23 15:00] VITALS: BP 134/65
[2018-09-23 15:16] VITALS: BP 140/77
[2018-09-23 15:26] VITALS: BP 120/67
[2018-09-23 15:36] VITALS: BP 125/73
[2018-09-23 15:46] VITALS: BP 116/75
== END 2018-09-23 16:00 | disposition home or self-care (01) ==
LOC: GI LAB 14:12
PROVIDERS: ATTEND Internal Medicine Gastroenterology
DX: I85.00 Esophageal varices without bleeding (principal); K76.6 Portal hypertension; K31.89 Other diseases of stomach and duodenum; I10 Essential (primary) hypertension; I48.91 Unspecified atrial fibrillation; K74.60 Unspecified cirrhosis of liver; E11.9 Type 2 diabetes mellitus without complications; J45.998 Other asthma; Z86.79 Personal history of other diseases of the circulatory system; Z85.3 Personal history of malignant neoplasm of breast; Z90.11 Acquired absence of right breast and nipple; Z87.891 Personal history of nicotine dependence; Z91.048 Other nonmedicinal substance allergy status; Z79.84 Long term (current) use of oral hypoglycemic drugs; Z79.899 Other long term (current) drug therapy; Z88.8 Allergy status to other drugs, medicaments and biological substances; Z98.890 Other specified postprocedural states
CPT/HCPCS: 43244; J2250; J3010; J7030; 99152; A4620

== ENCOUNTER 2018-11-25 08:22 | Day surgery (SDC) | payer MEDICARE, OTHER ==
[~2018-11-25] VITALS: Ht 164.5 cm; Wt 73.6 kg
[~2018-11-25 08:22] MED LIST changes: +ADAL40PE SUBCUT; -ANAS1TAB10 PO; +BUDE10.2 INH; +CHOL10002 PO; -EPIN0.3A3 IM; +IRON150C5 PO; -LACT10SO32 PO; -LACT1CAP26 PO; -LOVA20TA2 PO; +METF-438 PO; -METF500T PO; -OXYC-150 PO; -PRAM0.253 PO; +PRAM0.5T3 PO
[2018-11-25] MEDS ORDERED: LIDOcaine Viscous 15ml cup ONE (08:31)
[2018-11-25] MEDS ORDERED: fentaNYL/PF 50MCG/1 ML 2ML syringe ONE (08:31)
[2018-11-25] MEDS ORDERED: MIDAZolam 5mg/5ml vial ONE (08:31)
[2018-11-25 09:58] VITALS: BP 115/65
[2018-11-25 11:34] VITALS: BP 121/72
[2018-11-25 11:44] VITALS: BP 111/68
[2018-11-25 11:52] VITALS: BP 117/72
[2018-11-25 12:02] VITALS: BP 119/73
== END 2018-11-25 12:10 | disposition home or self-care (01) ==
LOC: GI LAB 08:22
PROVIDERS: ATTEND Internal Medicine Gastroenterology
DX: I85.00 Esophageal varices without bleeding (principal); K76.6 Portal hypertension; K31.89 Other diseases of stomach and duodenum; K22.8 Other specified diseases of esophagus
CPT/HCPCS: 43244; 99152; J2250; J3010; J7030; A4620

== ENCOUNTER 2020-03-29 08:59 | Day surgery (SDC) | payer MEDICARE, OTHER ==
[~2020-03-29] VITALS: Ht 164.5 cm; Wt 73.6 kg
[2020-03-29 09:12] VITALS: BP 143/79
[2020-03-29] MEDS ORDERED: MIDAZolam 5mg/5ml vial ONE (09:22)
[2020-03-29] MEDS ORDERED: LIDOcaine Viscous 15ml cup ONE (09:22)
[2020-03-29] MEDS ORDERED: fentaNYL/PF 50MCG/1 ML 2ML syringe ONE (09:22)
[2020-03-29] MEDS ORDERED: LEVO112T5 PO (09:42)
[2020-03-29] MEDS ORDERED: LEVOTHROXINE PO (09:44)
[2020-03-29] MEDS ORDERED: LACT10SO PO (09:49)
[2020-03-29] MEDS ORDERED: TRAZ-251 PO (09:50)
[2020-03-29] MEDS ORDERED: POLY1DRO2 OP (09:51)
[2020-03-29 10:30] VITALS: BP 133/73
[2020-03-29 10:40] VITALS: BP 123/66
[2020-03-29 10:50] VITALS: BP 122/69
[2020-03-29 11:00] VITALS: BP 124/64
== END 2020-03-29 11:00 | disposition home or self-care (01) ==
LOC: GI LAB 08:59
PROVIDERS: ATTEND Internal Medicine Gastroenterology
DX: I85.00 Esophageal varices without bleeding (principal); K44.9 Diaphragmatic hernia without obstruction or gangrene; K76.6 Portal hypertension; K31.89 Other diseases of stomach and duodenum
CPT/HCPCS: 43244; G0500; J2250; J3010; J7040; 99152; A4620

== ENCOUNTER 2020-10-10 09:04 | Emergency (ER) | payer MEDICARE, OTHER ==
[~2020-10-10] VITALS: Ht 167.6 cm; Wt 73.0 kg
[~2020-10-10 09:04] MED LIST changes: +LACT10SO PO; -LEVO112T39 PO; +LEVOTHROXINE PO; +POLY1DRO2 OP; -PRAM0.5T3 PO; +TRAZ-251 PO
[2020-10-10 09:10] VITALS: BP 131/69
[2020-10-10] MEDS ORDERED: HYDR-3965 PO (09:29)
[2020-10-10] MEDS ORDERED: HYDROcodone/acetaminophen 5mg/325mg tablet PO ONE (09:30)
[2020-10-10] MEDS ORDERED: ondansetron 4mg rapidly disintigrating tab PO ONE (09:35)
== END 2020-10-10 10:52 | disposition home or self-care (01) ==
LOC: ER 09:06
DX: M54.42 Lumbago with sciatica, left side (principal); M62.830 Muscle spasm of back; I48.91 Unspecified atrial fibrillation; I10 Essential (primary) hypertension; J44.9 Chronic obstructive pulmonary disease, unspecified; E11.9 Type 2 diabetes mellitus without complications; E03.9 Hypothyroidism, unspecified; M79.7 Fibromyalgia; K72.90 Hepatic failure, unspecified without coma; Z86.2 Personal history of diseases of the blood and blood-forming organs and certain disorders involving the immune mechanism; Z85.3 Personal history of malignant neoplasm of breast; Z98.891 History of uterine scar from previous surgery; Z90.710 Acquired absence of both cervix and uterus; Z72.89 Other problems related to lifestyle; Z79.899 Other long term (current) drug therapy; Z88.8 Allergy status to other drugs, medicaments and biological substances
CPT/HCPCS: 99283

== ENCOUNTER 2021-05-10 10:11 | Day surgery (SDC) | payer MEDICARE, OTHER ==
[2021-05-03 15:51] LABS: BASOPHILS % (AUTO) 0.6 % (0-1); EOSINOPHILS % (AUTO) 1.1 % (0-6); LYMPHOCYTES % (AUTO) 35.1 % (21-51); MEAN CORPUSCULAR HEMOGLOBIN 29.7 PG (27.0-31.0); MEAN CORPUSCULAR HGB CONC 32.7 g/dL (33.0-36.5); MEAN CORPUSCULAR VOLUME 90.6 FL (78-98); MEAN PLATELET VOLUME 8.3 FL (7.4-10.4); MONOCYTES # (AUTO) 0.2 X10'3 (0-0.9); MONOCYTES % (AUTO) 6.9 % (2-12); NEUTROPHILS # (AUTO) 1.6 X10'3 (1.8-7.7); NEUTROPHILS % (AUTO) 56.3 % (42-75); PRE OP HEMATOCRIT 33.8 % (35.0-45.0); PRE OP HEMOGLOBIN 11.1 g/dL (12.0-16.0); RED BLOOD COUNT 3.73 X10'6 (4.20-5.60)
[2021-05-03 15:53] LABS: PRE OP PLATELET COUNT 100 X10'3 (140-440)
[2021-05-03 16:15] LABS: ALBUMIN 4.2 G/DL (3.4-5.0); ALBUMIN/GLOBULIN RATIO 1.1 (1.1-1.5); ALKALINE PHOSPHATASE 49 IU/L (46-116); BLOOD UREA NITROGEN 13 MG/DL (7-18); BUN/CREATININE RATIO 18.6 (6.6-38.0); CALCIUM 8.9 MG/DL (8.5-10.1); CHLORIDE 106 MMOL/L (99-107); PRE OP ALT 37 U/L (30-65); PRE OP ANION GAP 12 (8-16); PRE OP AST 26 U/L (10-37); PRE OP BILIRUB, TOTAL 0.4 MG/DL (0.0-1.0); PRE OP GLUCOSE 96 MG/DL (70-104); PRE OP POTASSIUM 4.2 MMOL/L (3.4-5.1); PRE OP SODIUM 144 MMOL/L (135-145); TOTAL CARBON DIOXIDE 25.9 MMOL/L (24-32); TOTAL PROTEIN 7.9 G/DL (6.4-8.2); eGFR 82 ML/MIN
[2021-05-03 16:16] LABS: TOTAL CELLS COUNTED 100
[2021-05-03 16:17] LABS: PLATELET ESTIMATE DECREASED
[2021-05-10] VITALS (9 sets, daily range): BP systolic 103–123; BP diastolic 51–68
[~2021-05-10] VITALS: Ht 165.1 cm; Wt 66.7 kg
[~2021-05-10 10:11] MED LIST changes: +ALBU8HFA PO; +CLOB25SO7 TOP; +DIP0.05CR TOP; +EPIN0.3P3 IM; -IRON150C5 PO; -LACT10SO PO; +LACT10SO3 PO; +LEVO100T PO; -LEVOTHROXINE PO; -POLY1DRO2 OP; +ROSU20TA2 PO; +[UNRECOGNIZED DRUG - OTHER] PO; -albuterol inhaler; +cefazolin/dext.iso 2gm/100ml IV ONE; +famotidine 20mg tablet PO ONE; +ringers solution, lacted 1,000 ML IV SCH
[2021-05-10] MEDS ORDERED: LIDOcaine 1% 30ml preserv. free vial ONE (12:45)
[2021-05-10] MEDS ORDERED: methylene blue (5mg/ml) 50mg/10ml ampul IV ONE (12:45)
[2021-05-10] MEDS ORDERED: BUPIVAcaine 0.5% inj/PF 30 ML ONE (12:46)
[2021-05-10] MEDS ORDERED: fentaNYL/PF 50MCG/1 ML 2ML syringe ONE (13:00)
[2021-05-10] MEDS ORDERED: midazolam 1 mg/ML 2ml injection ONE (13:00)
[2021-05-10] MEDS ORDERED: propofol inj 20 ML IV ONE (13:21)
--- NOTE | 2021-05-10 13:35 | NUR ---
Received from OR via , accompanied by Anesthesiologist and report given by Anesthesiolgist. PATIENT A&OX4, DENIES PAIN, V/S WNL, SCD ON , PIV 20G LUE, POSTERIOR BUTTOCK REGION DRESSING CDI
[2021-05-10] MEDS ORDERED: traMADol 50MG tablet PO PRN (13:55)
--- NOTE | 2021-05-10 14:45 | NUR ---
PATIENT A&OX4, DENIES PAIN, V/S WNL, SCD ON , PIV 20G LUE D/C, POSTERIOR BUTTOCK REGION DRESSING CDI AFTER BEING REINFORCED. I HAVE REVIEWED D/C INSTRUCTIONS WITH PATIENT AND THEY HAVE VERBALIZED UNDERSTANDING OF INSTRUCTIONS. PATIENT D/C HOME WITH ALL BELONGINGS AND FAMILY GAVE TRANSPORT
== END 2021-05-10 14:45 | disposition home or self-care (01) ==
LOC: PAS 10:11
PROVIDERS: ATTEND Surgery
DX: L05.91 Pilonidal cyst without abscess (principal); K72.90 Hepatic failure, unspecified without coma; E11.9 Type 2 diabetes mellitus without complications; Z20.822 Contact with and (suspected) exposure to COVID-19; Z79.899 Other long term (current) drug therapy; Z88.8 Allergy status to other drugs, medicaments and biological substances; Z86.73 Personal history of transient ischemic attack (TIA), and cerebral infarction without residual deficits; Z90.710 Acquired absence of both cervix and uterus; Z98.890 Other specified postprocedural states; Z98.49 Cataract extraction status, unspecified eye; Z87.891 Personal history of nicotine dependence; Z82.61 Family history of arthritis; Z83.3 Family history of diabetes mellitus; Z84.1 Family history of disorders of kidney and ureter; Z83.2 Family history of diseases of the blood and blood-forming organs and certain disorders involving the immune mechanism; Z80.49 Family history of malignant neoplasm of other genital organs
CPT/HCPCS: 11771; 36415; 80053; 82948; 85025; 93005; J2001; J2250; J2704; J3010; Q9968; U0003; U0005; Z7506; Z7512; 85007; 88304; A4215; A4618; A6402; A6407; A7000; J7120

== ENCOUNTER 2022-02-23 20:59 | Emergency (ER) | payer MEDICARE, OTHER ==
[~2022-02-23] VITALS: Ht 165.1 cm; Wt 70.9 kg
[~2022-02-23 20:59] MED LIST changes: -cefazolin/dext.iso 2gm/100ml IV ONE; -famotidine 20mg tablet PO ONE; -ringers solution, lacted 1,000 ML IV SCH
[2022-02-23 21:06] VITALS: BP 133/49
[2022-02-23 22:02] LABS: BASOPHILS % (AUTO) 0.5 % (0-1); HEMATOCRIT 31.7 % (35.0-45.0); HEMOGLOBIN 10.6 g/dl (12.0-16.0); LYMPHOCYTES % (AUTO) 25.7 % (21-51); MEAN CORPUSCULAR HEMOGLOBIN 29.2 PG (27.0-31.0); MEAN CORPUSCULAR HGB CONC 33.3 g/dL (33.0-36.5); MEAN CORPUSCULAR VOLUME 87.6 FL (78-98); MEAN PLATELET VOLUME 8.8 FL (7.4-10.4); MONOCYTES # (AUTO) 0.3 X10'3 (0-0.9); MONOCYTES % (AUTO) 8.5 % (2-12); NEUTROPHILS # (AUTO) 2.6 X10'3 (1.8-7.7); NEUTROPHILS % (AUTO) 64.3 % (42-75); PLATELET COUNT 80 X10'3 (140-440); RED BLOOD COUNT 3.62 X10'6 (4.20-5.60); RED CELL DISTRIBUTION WIDTH 16.7 % (11.5-14.5)
[2022-02-23 22:12] LABS: APTT 28 SECONDS (22-32)
[2022-02-23 22:18] LABS: ALANINE AMINOTRANSFERASE 38 U/L (12-78); ALBUMIN 3.6 G/DL (3.4-5.0); ALBUMIN/GLOBULIN RATIO 1.1 (1.1-1.5); ALKALINE PHOSPHATASE 50 IU/L (46-116); ANION GAP 10 (8-16); ASPARTATE AMINO TRANSFERASE 27 U/L (10-37); BILIRUBIN,TOTAL 0.3 MG/DL (0.1-1.0); BLOOD UREA NITROGEN 17 MG/DL (7-18); BUN/CREATININE RATIO 20.2 (6.6-38.0); CALCIUM 8.6 MG/DL (8.5-10.1); CHLORIDE 106 MMOL/L (99-107); CREATININE 0.84 MG/DL (0.40-0.90); GLUCOSE 128 MG/DL (70-104); SODIUM 142 MMOL/L (135-145); TOTAL CARBON DIOXIDE 26.2 MMOL/L (24-32); TOTAL PROTEIN 6.9 G/DL (6.4-8.2); eGFR 66 ML/MIN
== END 2022-02-23 23:59 | disposition home or self-care (01) ==
LOC: ER 21:00
DX: R04.2 Hemoptysis (principal); I48.91 Unspecified atrial fibrillation; I10 Essential (primary) hypertension; J44.9 Chronic obstructive pulmonary disease, unspecified; K21.9 Gastro-esophageal reflux disease without esophagitis; E11.9 Type 2 diabetes mellitus without complications; E03.9 Hypothyroidism, unspecified; M79.7 Fibromyalgia; K72.90 Hepatic failure, unspecified without coma; Z85.3 Personal history of malignant neoplasm of breast; Z90.710 Acquired absence of both cervix and uterus; Z72.89 Other problems related to lifestyle; Z88.8 Allergy status to other drugs, medicaments and biological substances; Z79.899 Other long term (current) drug therapy
CPT/HCPCS: 36415; 71045; 80053; 85025; 85610; 85730; 86885; 86900; 86901; 93005; 99285

== ENCOUNTER 2022-03-08 22:36 | Emergency (ER) | payer MEDICARE, OTHER ==
[~2022-03-08] VITALS: Ht 167.6 cm; Wt 70.9 kg
[2022-03-08 23:07] VITALS: BP 131/91
== END 2022-03-09 05:44 | disposition left against medical advice (07) ==
LOC: ER 22:37
DX: K92.0 Hematemesis (principal); Z53.21 Procedure and treatment not carried out due to patient leaving prior to being seen by health care provider

== ENCOUNTER 2022-11-14 11:48 | Emergency (ER) | payer MEDICARE, OTHER ==
[~2022-11-14] VITALS: Ht 162.6 cm; Wt 68.2 kg
[2022-11-14 12:53] VITALS: BP 137/89
[2022-11-14] MEDS ORDERED: AZIT-31 PO (15:48)
[2022-11-14] MEDS ORDERED: GUAI400T92 PO (15:48)
--- NOTE | 2022-11-14 16:10 | NUR ---
PT WAS SEEN, TREATED AND DC'D BY PROVIDER PRIOR TO TUFTER HAND
== END 2022-11-14 16:09 | disposition home or self-care (01) ==
LOC: ER 11:48
DX: J06.9 Acute upper respiratory infection, unspecified (principal); I10 Essential (primary) hypertension; J44.9 Chronic obstructive pulmonary disease, unspecified; K21.9 Gastro-esophageal reflux disease without esophagitis; E11.9 Type 2 diabetes mellitus without complications; E03.9 Hypothyroidism, unspecified; M79.7 Fibromyalgia; F31.9 Bipolar disorder, unspecified; I48.91 Unspecified atrial fibrillation; Z90.710 Acquired absence of both cervix and uterus; Z72.89 Other problems related to lifestyle; Z98.890 Other specified postprocedural states; Z88.8 Allergy status to other drugs, medicaments and biological substances; Z79.899 Other long term (current) drug therapy; Z79.84 Long term (current) use of oral hypoglycemic drugs
CPT/HCPCS: 71045; 99283

== ENCOUNTER 2024-06-30 13:45 | Emergency (ER) | payer MEDICARE, OTHER ==
[~2024-06-30] VITALS: Ht 165.1 cm; Wt 76.8 kg
[~2024-06-30 13:45] MED LIST changes: +CLOB25SO14 TOP; -CLOB25SO7 TOP; +GUAI400T92 PO
[2024-06-30] MEDS ORDERED: SULF1TAB49 PO (17:10)
[2024-06-30 17:44] VITALS: BP 166/62; PULSE 66; RESP 16; TEMP 97.9; O2SAT 98
== END 2024-06-30 17:33 | disposition home or self-care (01) ==
LOC: ER 13:45
DX: L03.113 Cellulitis of right upper limb (principal); L03.114 Cellulitis of left upper limb; L03.115 Cellulitis of right lower limb; L03.116 Cellulitis of left lower limb; I48.91 Unspecified atrial fibrillation; I10 Essential (primary) hypertension; J44.9 Chronic obstructive pulmonary disease, unspecified; K21.9 Gastro-esophageal reflux disease without esophagitis; E11.9 Type 2 diabetes mellitus without complications; E03.9 Hypothyroidism, unspecified; M79.7 Fibromyalgia; Z88.1 Allergy status to other antibiotic agents; Z88.8 Allergy status to other drugs, medicaments and biological substances; Z79.899 Other long term (current) drug therapy; Z90.710 Acquired absence of both cervix and uterus; Z90.49 Acquired absence of other specified parts of digestive tract; Z85.3 Personal history of malignant neoplasm of breast
CPT/HCPCS: 99283

== ENCOUNTER 2025-04-06 14:55 | Emergency (ER) | payer MEDICARE, OTHER ==
[~2025-04-06] VITALS: Ht 162.6 cm; Wt 75.0 kg
[~2025-04-06 14:55] MED LIST changes: -ADAL40PE SUBCUT; +APIX5TAB5 PO; -BUDE10.2 INH; +CEFD300C3 PO; -GUAI400T92 PO; +LACT-373 PO; -LACT10SO3 PO; +OXYC5CAP22 PO; +RIFA550T PO; +RISA150P SUBCUT; -TRAZ-251 PO; +UMEC1DIS INH; -[UNRECOGNIZED DRUG - OTHER] PO
[2025-04-06 14:58] VITALS: BP 117/73; PULSE 71; O2SAT 99
--- NOTE | 2025-04-06 16:03 | RADIOLOGY REPORT ---
CT CT LUMBAR SPINE Indication: severe pain with right sciatica EXAM DATE: 04/06/2025 03:24 PM COMPARISON: None TECHNIQUE: CT of the lumbar spine without intravenous contrast. RADIATION DOSE: CTDIvol: 25 mGy, DLP: 86 mGy*cm FINDINGS: The lumbar vertebral body heights are maintained. Moderate to severe multilevel disc space narrowing most pronounced at L5-S1. Osseous sclerotic changes. Moderate lumbar facet hypertrophic changes. Tnel-xm-wjlyryuw bilateral sacroiliac degenerative joint disease. Left iliac sclerotic lesion measuring 7 mm. 1 cm L1 sclerotic lesion. Atherosclerotic disease. Aortic tortuosity. Small to moderate volume free pelvic fluid. Cirrhotic mo rphology appearance liver.1 There is severe bilateral neural foraminal stenosis at L5-S1. Moderate bilateral neural foraminal lakia nosis L4-5. [id number] neural foraminal stenosis remaining levels. There is a 4 mm right paracentral /foraminal disc protrusion at L4-5 which impresses upon the descend ing right L4 nerve root. IMPRESSION: Moderate to severe lumbar degenerative disc disease. Disc protrusion at L4-5 which impresses upon the descending right L4 nerve root. Severe neural foraminal stenosis bilaterally at L5-S1. Moderate neural foraminal stenosis L4-5. Left iliac sclerotic lesion measuring 7 mm and 1 cm left L1 sclerotic lesion. Differential considerat ions include bone island, bone infarct, osteoblastic metastases. Correlate with clinical history and risk factors. Free Pelvic fluid . Osseous sclerotic changes which could be secondary to metabolic processes, osteoblastic metastases.. Other findings as described.
[2025-04-06] MEDS ORDERED: PRED10TA23 PO (16:51)
[2025-04-06] MEDS ORDERED: CYCL-394 PO (16:51)
--- NOTE | 2025-04-06 16:52 | Physician Documentation ---
History of Present Illness ~ Chief Complaint: Back Pain Stated Complaint: BACK PAIN Time Seen by MD: 15:37 Primary Medical Doctor: DORA HOSKINS HPI 79-year-old female presents with a complaint of chronic back pain. She says that she developed this pain after being hospitalized with a pulmonary embolism. She adds that the pain radiates down her right leg. She does have some tingl ing but denies any saddle anesthesia or incontinence. She says that she recently finished a physical therapy regimen but now has increased pain. He is being followed in the outpatient setting. Day of Onset: Apr 06, 2025 Medication Reconciliation Allergies: Coded Allergies: triamcinolone (Unverified Allergy, Mild, RASH, 04/06/25) topiramate (Verified Allergy, Unknown, 04/06/25) alprazolam (Verified Adverse Reaction, Severe, PERSONALITY CHANGE, 04/06/25) Uncoded Allergies: CHROMIC SUTURES (Allergy, Unknown, 03/12/14) Scheduled Apixaban (Eliquis), 1 TAB PO UD Betamet Diprop/Prop Gly (Betamethasone Dp Aug 0.05% Crm), 1 APPLIC TOP Q12H, (Reported) Cefdinir* (Cefdinir*), 1 CAP PO Q12H Cholecalciferol (Vitamin D3) (Vitamin D3), 1 TAB PO DAILY Cyclobenzaprine HCl (Cyclobenzaprine HCl), 1 TAB PO Q8H Levothyroxine Sodium (Synthroid), 1 TAB PO DAILY, (Reported) Metformin HCl (Metformin HCl), 1 TAB PO Q12H, (Reported) Prednisone (Prednisone), 1 TAB PO BID Rifaximin (Xifaxan), 1 TAB PO Q12H, (Reported) Risankizumab-Rzaa (Skyrizi Pen), SUBCUT [id number], (Reported) Rosuvastatin Calcium* (Crestor*), 1 TAB PO DAILY, (Reported) Umeclidinium Brm/Vilanterol Tr (Anoro Ellipta 62.5-25 Mcg INH), 1 PUFFS INH DAILY, (Reported) Verapamil Hcl SR* (Calan SR*), 240 MG PO DAILY, (Reported) Scheduled PRN Clobetasol Propionate (Clobetasol Propionate), 1 APPLIC TOP Q12H PRN for scalp psoriasis, (Reported) Epinephrine (Epipen 2-Bienvenido), 1 SYR IM ONCE PRN for bee sting, (Reported) Lactulose (Lactulose), 30 ML PO for liver failure, (Reported) Oxycodone HCl (Oxycodone HCl), 1 CAP PO Q6H PRN for severe pain (7-10) albuterol inhaler (Pro-Air Inhaler), 1-2 PUFFS PO Q4H PRN for shortness of breath, (Reported) Past Medical History Past Medical History: *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 back: Tender to palpation in the lumbar region Respiratory: Lungs clear, no respiratory distress. Psychiatric: Normal mood and affect. Skin: Normal color, warm and dry. No edema, no ecchymosis. Progress Results/Orders Results/Orders Completed Orders - MUSTAPHA EDWARD [employer]ER Morphine 2mg/Ml Inj. (Morphine Inj.) (04/06/25 16:50) Prednisone Tablet (Prednisone Tablet) (04/06/25 16:50) Vital Signs 04/06/25 14:58 Temp 98.5 Pulse 71 Resp 18 B/P (MAP) 117/73 Pulse Ox 99 O2 Flow Rate 0 Medical Decision Making Findings treated for chronic back pain.; I recommended with the patient that she needs to get an MRI in the outpatient setting. She does not present with any red flag symptoms at this time. Sent her home with some muscle relaxers hand prednisone. So indicated that she would likely benefit from an additional round of physical therapy appointments Differential Dx:Considerations: Include: AAA, Aortic dissection, , Appendicitis, Bowel obstruction, Cholelithiasis, Cholangitis, DJD, Ectopic , Fracture, Hepatitis, HNP, Musculoskeletal pain, Pancreatitis, Pyelonephritis, Strain, Urinary obstruction, Urolithiasis, Ovarian torsion, Other Departure Disposition: HOME / SELF CARE / HOMELESS Impression: Primary Impression: Low back pain Discharge Instructions: Chronic Pain, Adult Referrals: NO PRIMARY CARE PROVIDER (PCP) Prescriptions Prednisone (Prednisone) 10 Mg Tablet 1 TAB PO BID for 5 Days, #10 TAB Prov: MUSTAPHA EDWARD NP 04/06/25 Cyclobenzaprine HCl (Cyclobenzaprine HCl) 10 Mg Tablet 1 TAB PO Q8H for muscle spasms for 10 Days, #30 TAB Prov: MUSTAPHA EDWARD NP 04/06/25 Education Educated: Patient Educated regarding: diagnosis Signature Scribe Signature: t Attestation: Scribed for Mustapha Edward Molecular Pathologist by Mustapha Cote NP . 04/06/25 16:48 MUSTAPHA EDWARD NP Apr 06, 2025 16:52
[2025-04-06 17:23] VITALS: RESP 18
[2025-04-06 17:29] VITALS: TEMP 98.5
== END 2025-04-06 17:31 | disposition home or self-care (01) ==
LOC: ER 14:56
DX: M54.50 Low back pain, unspecified (principal); E03.9 Hypothyroidism, unspecified; E11.9 Type 2 diabetes mellitus without complications; I10 Essential (primary) hypertension; I48.91 Unspecified atrial fibrillation; J44.9 Chronic obstructive pulmonary disease, unspecified; M79.7 Fibromyalgia; K21.9 Gastro-esophageal reflux disease without esophagitis; Z85.3 Personal history of malignant neoplasm of breast; Z88.8 Allergy status to other drugs, medicaments and biological substances; Z90.710 Acquired absence of both cervix and uterus
CPT/HCPCS: 72131; 96372; 99285; J2270; J7512